=== PATIENT | female | born 1960 | race American Indian/Alaskan Native ===

== ENCOUNTER 2017-09-24 07:25 | Outpatient (CLI) | payer OTHER ==
[2017-09-24] MEDS ORDERED: PROVENTIL IH ONE (08:07)
== END 2017-09-24 07:26 | disposition home or self-care (01) ==
LOC: PF 07:25
PROVIDERS: ATTEND Internal Medicine
DX: J45.909 Unspecified asthma, uncomplicated (principal); I20.9 Angina pectoris, unspecified
CPT/HCPCS: 94060; 94640